=== PATIENT | male | born 1940 | race African-American/Black ===

== ENCOUNTER 2022-02-27 15:40 | Inpatient (IN) | payer BC, MEDICARE ==
[~2022-02-27] VITALS: Ht 177.8 cm; Wt 121.1 kg
[2022-02-27] MEDS ORDERED: DILTIAZEM HCL 5MG/ML 5ML VIAL IV ONE (16:00)
[2022-02-27 16:26] LABS: CHLORIDE 117 mEq/L (98-107)
[2022-02-27 16:28] LABS: BASOPHILS % 0.4 % (0.0-2.0); EOSINOPHILS % 1.1 % (0.0-5.0); HEMATOCRIT. 36.9 % (42.0-52.0); HEMOGLOBIN. 11.9 g/dL (14.0-18.0); LYMPHOCYTES % 22.9 % (20.0-50.0); MEAN CORPUSCULAR HEMOGLOBIN 29.3 pg (28.0-32.0); MEAN CORPUSCULAR VOLUME 90.8 fL (80.0-94.0); MEAN PLATELET VOLUME 8.6 fl (7.4-10.4); MONOCYTES % 9.7 % (2.0-8.0); NEUTROPHILS % 65.9 % (40.0-76.0); PLATELET 133 x1000/uL (130-400); RED BLOOD CELL COUNT 4.07 mill/uL (4.7-6.1); RED CELL DISTRIBUTION WIDTH 14.4 % (11.6-14.6)
[2022-02-27 16:36] LABS: ETHANOL BLOOD < 10 mg/dL
[2022-02-27] MEDS ORDERED: DILTIAZEM HCL 120MG CAPSULE CD 24HR PO ONE (17:30)
[2022-02-27] MEDS ORDERED: FUROSEMIDE 40MG/4ML VIAL IVP NR (19:30)
[2022-02-27] MEDS ORDERED: ZOLPIDEM TARTRATE 5MG TABLET PO PRN (21:30)
[2022-02-27] MEDS ORDERED: MAGNESIUM/ALUMINUM HYDROXIDE/SIMETHICONE 30ML UDC PO PRN (21:30)
[2022-02-27] MEDS ORDERED: NALOXONE HCL 0.4MG/ML VIAL IV PRN (21:30)
[2022-02-27] MEDS ORDERED: TRAMADOL 50MG TABLET PO PRN (21:30)
[2022-02-27] MEDS ORDERED: GUAIFENESIN 200MG/10ML SUGAR FREE UDC PO PRN (21:30)
[2022-02-27] MEDS ORDERED: NITROGLYCERIN 0.4MG TABLET SL SL PRN (21:30)
[2022-02-27] MEDS ORDERED: IPRATROPIUM/ALBUTEROL 0.5-3(2.5)MG/3ML NEB NEB PRN (21:30)
[2022-02-27] MEDS ORDERED: DOCUSATE SODIUM 100MG CAPSULE PO PRN (21:30)
[2022-02-27] MEDS ORDERED: CLONIDINE 0.1MG TABLET PO PRN (21:30)
[2022-02-27] MEDS ORDERED: ACETAMINOPHEN 325MG TABLET PO PRN ×2 (21:30)
[2022-02-27] MEDS ORDERED: ONDANSETRON HCL 4MG/2ML INJ IV PRN (21:30)
[2022-02-27] MEDS ORDERED: NA PHOS,M-B/NA PHOS,DI-BA ENEMA 118ML PR PRN (21:30)
[2022-02-27 22:01] LABS: ETHANOL BLOOD < 10 mg/dL; HDL CHOLESTEROL 37 mg/dL (40-59); LDL CHOLESTEROL 64 mg/dL (5-100); T4 FREE 1.03 ng/dL (0.76-1.46); TOTAL IRON BINDING CAPACITY 166 ug/dL (250-450)
[2022-02-27] MEDS ORDERED: ENOXAPARIN 120MG/0.8ML SYR SUBCUT NR (22:15)
[2022-02-27 22:33] LABS: FOLIC ACID (FOLATE) SERUM 5.5 ng/mL (>5.38)
[2022-02-27 22:37] LABS: PROTHROMBIN TIME 11.2 sec (9.6-11.0)
[2022-02-27] MEDS: DILTIAZEM HCL 60MG TABLET PO SCH (23:42)
[2022-02-28] LABS: CREATINE KINASE MB FRACTION 1.9 ng/mL (0.5-3.6)
[2022-02-28 03:44] VITALS: BP 136/93
[2022-02-28] MEDS: DILTIAZEM HCL 60MG TABLET PO SCH ×3 (06:37→18:22)
[2022-02-28 08:00] VITALS: BP 149/81
[2022-02-28] MEDS: ASPIRIN 325MG EC TABLET PO SCH (09:39)
[2022-02-28] MEDS: FAMOTIDINE 20MG TABLET PO SCH (09:39)
[2022-02-28] MEDS: SPIRONOLACTONE 25MG TABLET PO SCH ×2 (09:39→20:08)
[2022-02-28] MEDS: FUROSEMIDE 40MG/4ML VIAL IVP SCH ×2 (09:39→20:08)
[2022-02-28] MEDS ORDERED: TAMSULOSIN HCL 0.4MG SR CAPSULE PO SCH (10:30)
[2022-02-28] MEDS ORDERED: FINASTERIDE 5MG TABLET PO SCH (10:30)
[2022-02-28] MEDS ORDERED: LOSA100T32 MT (10:40)
[2022-02-28] MEDS ORDERED: TAMS-11 MT (10:40)
[2022-02-28] MEDS ORDERED: METO-411 MT (10:41)
[2022-02-28 11:18] LABS: BASOPHILS % 0.4 % (0.0-2.0); EOSINOPHILS % 1.7 % (0.0-5.0); HEMATOCRIT. 34.8 % (42.0-52.0); HEMOGLOBIN. 11.4 g/dL (14.0-18.0); LYMPHOCYTES % 22.9 % (20.0-50.0); MEAN CORPUSCULAR HEMOGLOBIN 29.4 pg (28.0-32.0); MEAN CORPUSCULAR VOLUME 89.4 fL (80.0-94.0); MEAN PLATELET VOLUME 8.4 fl (7.4-10.4); MONOCYTES % 8.2 % (2.0-8.0); NEUTROPHILS % 66.8 % (40.0-76.0); PLATELET 133 x1000/uL (130-400); RED BLOOD CELL COUNT 3.89 mill/uL (4.7-6.1); RED CELL DISTRIBUTION WIDTH 14.7 % (11.6-14.6)
[2022-02-28 11:26] LABS: CHLORIDE 112 mEq/L (98-107)
[2022-02-28 11:36] LABS: CREATINE KINASE 146 IU/L (39-308); CREATINE KINASE MB FRACTION 2.4 ng/mL (0.5-3.6); PHOSPHORUS 2.9 mg/dL (2.5-4.9)
[2022-02-28 11:39] VITALS: BP 140/74
[2022-02-28] MEDS: TAMSULOSIN HCL 0.4MG SR CAPSULE PO SCH (12:45)
[2022-02-28] MEDS: ENOXAPARIN 120MG/0.8ML SYR SUBCUT SCH (12:45)
[2022-02-28] MEDS: DUTASTERIDE 0.5MG CAPSULE PO SCH (13:00)
[2022-02-28 15:58] VITALS: BP 154/81
[2022-02-28 20:43] VITALS: BP 159/72
[2022-03-01 00:09] VITALS: BP 147/73
[2022-03-01] MEDS: DILTIAZEM HCL 60MG TABLET PO SCH ×4 (01:47→17:50)
[2022-03-01 04:00] VITALS: BP 134/64
[2022-03-01 08:00] VITALS: BP 148/90
[2022-03-01] MEDS: FUROSEMIDE 40MG/4ML VIAL IVP SCH ×2 (09:08→20:18)
[2022-03-01] MEDS: ASPIRIN 325MG EC TABLET PO SCH (09:08)
[2022-03-01] MEDS: DUTASTERIDE 0.5MG CAPSULE PO SCH (09:08)
[2022-03-01] MEDS: FAMOTIDINE 20MG TABLET PO SCH (09:08)
[2022-03-01] MEDS: SPIRONOLACTONE 25MG TABLET PO SCH ×2 (09:09→20:18)
[2022-03-01] MEDS: TAMSULOSIN HCL 0.4MG SR CAPSULE PO SCH (09:09)
[2022-03-01 10:44] LABS: CHLORIDE 106 mEq/L (98-107)
[2022-03-01] MEDS: ENOXAPARIN 120MG/0.8ML SYR SUBCUT SCH (11:57)
[2022-03-01 12:00] VITALS: BP 133/73
[2022-03-01 16:00] VITALS: BP 137/76
[2022-03-01 20:00] VITALS: BP 144/89
[2022-03-02] VITALS: BP 127/64
[2022-03-02] MEDS: DILTIAZEM HCL 60MG TABLET PO SCH ×4 (00:25→18:05)
[2022-03-02 04:00] VITALS: BP 116/70
[2022-03-02 08:00] VITALS: BP 125/65
[2022-03-02] MEDS: DUTASTERIDE 0.5MG CAPSULE PO SCH (08:56)
[2022-03-02] MEDS: ASPIRIN 325MG EC TABLET PO SCH (08:56)
[2022-03-02] MEDS: TAMSULOSIN HCL 0.4MG SR CAPSULE PO SCH (08:56)
[2022-03-02] MEDS: SPIRONOLACTONE 25MG TABLET PO SCH (08:56)
[2022-03-02] MEDS: FAMOTIDINE 20MG TABLET PO SCH (08:56)
[2022-03-02] MEDS: FUROSEMIDE 40MG/4ML VIAL IVP SCH (09:47)
[2022-03-02 12:00] VITALS: BP 123/85
[2022-03-02] MEDS: ENOXAPARIN 120MG/0.8ML SYR SUBCUT SCH (12:42)
[2022-03-02 16:00] VITALS: BP 129/69
== END 2022-03-02 20:10 | disposition home or self-care (01) | DRG 291 ==
LOC: ER 15:40 → SUPCPDRO 21:15 → ENRESERV 02-28 02:19 → 7WST 02-28 04:32
PROVIDERS: ADMIT Internal Medicine; ATTEND Internal Medicine
DX: I13.0 Hypertensive heart and chronic kidney disease with heart failure and stage 1 through stage 4 chronic kidney disease, or unspecified chronic kidney disease (principal); I50.33 Acute on chronic diastolic (congestive) heart failure; N17.0 Acute kidney failure with tubular necrosis; I48.92 Unspecified atrial flutter; E44.0 Moderate protein-calorie malnutrition; I47.1 Supraventricular tachycardia; I48.91 Unspecified atrial fibrillation; D63.8 Anemia in other chronic diseases classified elsewhere; D63.1 Anemia in chronic kidney disease; E66.9 Obesity, unspecified; J44.9 Chronic obstructive pulmonary disease, unspecified; N18.9 Chronic kidney disease, unspecified; N40.0 Benign prostatic hyperplasia without lower urinary tract symptoms; E78.5 Hyperlipidemia, unspecified; Z68.38 Body mass index [BMI] 38.0-38.9, adult
CPT/HCPCS: 36415; 71045; 76770; 80053; 80061; 80320; 82550; 82553; 82607; 82746; 83036; 83540; 83550; 83605; 83735; 83880; 84100; 84439; 84443; 84484; 85025; 93005; 93306; 93970; 99291; J1650; J1940; J3490; G0480